=== PATIENT | male | born 1975 | race Caucasian/White ===

== ENCOUNTER → 2020-04-25 | Outpatient (CLI) | payer OTHER ==
[~2020-04-25] MED LIST: NONE PER PT
== END | disposition home or self-care (01) ==
LOC: STAR 11:09
PROVIDERS: ATTEND Urology
DX: Z01.812 Encounter for preprocedural laboratory examination (principal); Z20.828 Contact with and (suspected) exposure to other viral communicable diseases
CPT/HCPCS: 36415; 87635

== ENCOUNTER 2020-04-30 05:40 | Day surgery (SDC) | payer OTHER ==
[~2020-04-30] VITALS: Ht 188 cm; Wt 125.0 kg
[2020-04-30] MEDS ORDERED: NONE PER PT (06:33)
[2020-04-30 06:35] VITALS: BP 149/98
[2020-04-30] MEDS ORDERED: BUPIVACAINE/PF 0.5% ONE (06:57)
[2020-04-30] MEDS ORDERED: BUPIVACAINE/PF 0.25% ONE (06:57)
[2020-04-30] MEDS ORDERED: MIDAZOLAM 1 MG/ML, 2ML ONE (06:58)
[2020-04-30] MEDS ORDERED: FENTANYL PF 100 MCG/2ML ONE ×2 (06:58→07:48)
[2020-04-30] MEDS ORDERED: CHLORHEXIDINE 15 ML UDC MM ONE (07:00)
[2020-04-30] MEDS ORDERED: LACTATED RINGERS 1,000 ML IV SCH (07:00)
[2020-04-30] MEDS ORDERED: HYDROmorphone 1 MG/ML, 1ML INJ IVPush PRN (07:30)
[2020-04-30] MEDS ORDERED: MEPERIDINE/PF 25MG/0.5ML IVPush PRN (07:30)
[2020-04-30] MEDS ORDERED: PROMETHAZINE 25 MG SUPP PR PRN (07:30)
[2020-04-30] MEDS ORDERED: ACETAMINOPHEN 325 MG TABLET PO PRN (07:30)
[2020-04-30] MEDS ORDERED: OXYcodone 5 MG/5 ML ORAL.SOL UDC PO PRN (07:30)
[2020-04-30] MEDS ORDERED: EPHEDRINE 50 MG/ML, 1ML IVPush PRN (07:30)
[2020-04-30] MEDS ORDERED: LABETALOL 5MG/ML, 20ML IV PRN (07:30)
[2020-04-30] MEDS ORDERED: METHOCARBAMOL 1,000 MG in DEXTROSE 5% 100 ML IV PRN (07:30)
[2020-04-30] MEDS ORDERED: FENTANYL PF 100 MCG/2ML IV PRN (07:30)
[2020-04-30] MEDS ORDERED: ONDANSETRON 2MG/ML, 2ML IVPush PRN (07:30)
[2020-04-30] MEDS ORDERED: KETOROLAC 30 MG/1 ML IVPush PRN (07:30)
[2020-04-30] MEDS ORDERED: hydrALAzine 20 MG/ML, 1ML IV PRN (07:30)
[2020-04-30] MEDS ORDERED: CEFAZOLIN 1,000 MG ONE (08:32)
[2020-04-30] MEDS ORDERED: PROPOFOL 10 MG/ML, 20ML ONE (08:32)
[2020-04-30] MEDS ORDERED: DEXAMETHASONE 4 MG/ML, 1ML ONE (08:32)
[2020-04-30] MEDS ORDERED: ONDANSETRON 2MG/ML, 2ML ONE (08:32)
== END 2020-04-30 10:15 | disposition home or self-care (01) ==
LOC: OUT 05:40
PROVIDERS: ATTEND Urology
DX: Z30.2 Encounter for sterilization (principal); N50.0 Atrophy of testis; E66.9 Obesity, unspecified; Z68.33 Body mass index [BMI] 33.0-33.9, adult; Z79.891 Long term (current) use of opiate analgesic
CPT/HCPCS: 55250; 88302; J0690; J1100; J2250; J2405; J2704; J3010; J7120